=== PATIENT | female | born 1990 | race African-American/Black ===

== ENCOUNTER 2025-05-11 21:27 | Emergency (ER) | payer SELFPAY ==
[~2025-05-11] VITALS: Ht 182.9 cm; Wt 82.0 kg
[2025-05-11 21:29] VITALS: TEMP 37.1; O2SAT 100
[2025-05-11] MEDS: SODIUM CHLORIDE 0.9% 1,000 ML IV ONE (22:38)
[2025-05-11 23:15] LABS: BASOPHILS % 1.1 % (0.0-2.0); EOSINOPHILS % 6.0 % (0.0-5.0); HEMATOCRIT. 39.3 % (36.0-48.0); HEMOGLOBIN. 12.1 g/dL (12.0-16.0); LYMPHOCYTES % 46.6 % (20.0-50.0); MEAN PLATELET VOLUME 7.5 fl (7.4-10.4); MONOCYTES % 7.1 % (2.0-8.0); NEUTROPHILS % 39.2 % (40.0-76.0); PLATELET 258 x1000/uL (130-400); RED BLOOD CELL COUNT 4.61 mill/uL (4.2-5.4); RED CELL DISTRIBUTION WIDTH 17.2 % (11.6-14.6)
[2025-05-11 23:32] LABS: CREATININE 0.6 mg/dL (0.6-1.0); UREA NITROGEN BLOOD < 5 mg/dL (9-23)
[2025-05-11 23:36] LABS: HCG SCREEN NEGATIVE
[2025-05-12] MEDS: KCL 20MEQ/100ML PREMIX 100 ML IV NR (00:41)
[2025-05-12 00:50] VITALS: BP 124/97; PULSE 73; RESP 18; O2SAT 95
== END 2025-05-12 01:55 | disposition left against medical advice (07) ==
LOC: ER 21:27
DX: F10.229 Alcohol dependence with intoxication, unspecified (principal); G92.9 Unspecified toxic encephalopathy; E87.6 Hypokalemia; Z79.899 Other long term (current) drug therapy; Y90.8 Blood alcohol level of 240 mg/100 ml or more
CPT/HCPCS: 80048; 80307; 80329; 80320; 84703; 85025; 36415; 96361; 99284; 96365; J7030; J3480; G0480